=== PATIENT | male | born 1975 | race Two or more races ===

== ENCOUNTER 2021-07-23 02:41 | Emergency (ER) | payer MEDICAID, OTHER ==
[~2021-07-23] VITALS: Ht 177.8 cm; Wt 120.2 kg
--- NOTE | 2021-07-23 03:00 | NUR ---
[facility] TO ER BED 13. AAOX4. NOT IN RESP DISTRESS. AMBULATORY. C/O SUICIDAL IDEATION - NO SPECIFIC PLANS BUT HE IS SEEKING VOLUNTARY PSYCH ADMISSION. PT DENIES HALLUCINATION. DENIES HI. MD AT BEDSIDE FOR EVAL. SITTER AT BEDSIDE, PT IN GOWN AND BELONGINGS IN LOCKER.
[2021-07-23 04:40] LABS: BASOPHILS % (AUTO) 0.4 % (0.0-2.0); EOSINOPHILS % (AUTO) 5.6 % (0.0-6.0); HEMATOCRIT 37 % (39-51); HEMOGLOBIN 12.8 g/dL (13.5-17.5); LYMPHOCYTES # (AUTO) 1.6 K/uL (0.8-4.8); LYMPHOCYTES % (AUTO) 32.3 % (20.0-44.0); MEAN CORPUSCULAR HGB CONC 35 g/dl (31.0-36.0); MEAN CORPUSCULAR VOLUME 93 fL (80-96); MONOCYTES # (AUTO) 0.7 K/uL (0.1-1.30); NEUTROPHILS # (AUTO) 2.3 K/uL (1.8-8.9); NEUTROPHILS % (AUTO) 47.7 % (43.0-81.0); PLATELET COUNT (AUTO) 115 K/uL (150-450); RED BLOOD CELL COUNT(AUTO) 3.98 MIL/uL (4.5-6.0); WHITE BLOOD COUNT (AUTO) 4.8 K/uL (4.3-11.0)
[2021-07-23 04:55] LABS: CREATININE 1.1 mg/dL (0.6-1.3); POTASSIUM 3.3 mmol/L (3.5-5.1)
[2021-07-23 05:11] LABS: ALBUMIN 3.4 g/dL (3.4-5.0); BILIRUBIN,DIRECT 0.5 mg/dL (0.0-0.2); BILIRUBIN,TOTAL 1.1 mg/dL (0.2-1.0); TOTAL PROTEIN, SERUM 7.7 g/dL (6.4-8.2)
--- NOTE | 2021-07-23 05:54 | NUR ---
PT IN BED SLEEPING. NO DISTRESS NOTED
[2021-07-23 06:39] LABS: BILIRUBIN,URINE SMALL (NEGATIVE); COLOR,URINE DARK YELLOW (YELLOW); LEUKOCYTE ESTERASE ,URINE NEGATIVE (NEGATIVE); NITRITE, URINE NEGATIVE (NEGATIVE); PROTEIN,URINE NEGATIVE (NEGATIVE); UGLUCOSE NEGATIVE (NEGATIVE); UROBILINOGEN,URINE 0.2 EU/dL (0.2)
--- NOTE | 2021-07-23 10:20 | NUR ---
[facility] faxed clinical reports to [facility].
--- NOTE | 2021-07-23 11:45 | NUR ---
LUNCH TRAY PROVIDED, TOLERATED FOOD WELL
--- NOTE | 2021-07-23 12:52 | NUR ---
Spoke with Frederic from [facility]. He stated that pt. has low potassium level, needs to clarify which opiates taken, and need medical clerance note.
--- NOTE | 2021-07-23 14:09 | NUR ---
KWAKU DAVIS CALLED TO LEVEL POTASSIUM THAT IS CURRENTLY AT 3.3, DR ADRIAN AWARE
--- NOTE | 2021-07-23 14:11 | NUR ---
DR ADRIAN GAVE VERBAL ORDER TO GIVE 30MEQ POTASSIUM PO
[2021-07-23] MEDS ORDERED: POTASSIUM CHLORIDE 20 MEQ TAB.PRT.SR PO ONE ×2 (14:17→14:30)
[2021-07-23] MEDS ORDERED: POTASSIUM CHLORIDE 10 MEQ TABLET.SA ONE (14:17)
[2021-07-23 18:43] VITALS: BP 129/67
--- NOTE | 2021-07-23 23:09 | NUR ---
REFAXED CLINICALS TO [facility].
--- NOTE | 2021-07-24 00:24 | NUR ---
PT ACCEPTED BY DR MIRELES AT [facility]. CALL [phone]. GOING TO UNIT 2
--- NOTE | 2021-07-24 01:04 | NUR ---
[facility] ETA 2HRS
--- NOTE | 2021-07-24 01:35 | NUR ---
GAVE REPORT TO EMS
--- NOTE | 2021-07-24 01:35 | NUR ---
GAVE REPORT TO KISHOR COBIAN FOR [facility]
--- NOTE | 2021-07-24 01:51 | NUR ---
[id number] AT BEDSIDE FOR PT TRANSPORT TO [facility]. PT IS IN STABLE CONDITION FOR TRANSPORT.
== END 2021-07-24 01:53 ==
LOC: ER 02:44
DX: R45.851 Suicidal ideations (principal); Z20.822 Contact with and (suspected) exposure to COVID-19; Z59.02 Unsheltered homelessness; K74.60 Unspecified cirrhosis of liver
CPT/HCPCS: 36415; 80048; 80076; 80143; 80307; 80320; 81003; 84132; 85025; 87426; 99285; C9803; G0480